=== PATIENT | female | born 1960 | race Caucasian/White ===

== ENCOUNTER 2022-08-07 10:46 | Emergency (ER) | payer OTHER ==
[~2022-08-07] VITALS: Ht 167.6 cm; Wt 69.7 kg
[2022-08-07 11:11] VITALS: BP 155/79
[2022-08-07] MEDS ORDERED: KETOROLAC TROMETH 60MG/2ML VIAL IM ONE (12:30)
== END 2022-08-07 12:51 | disposition home or self-care (01) ==
LOC: ER 10:46
DX: S16.1XXA Strain of muscle, fascia and tendon at neck level, initial encounter (principal); G44.309 Post-traumatic headache, unspecified, not intractable; M50.30 Other cervical disc degeneration, unspecified cervical region; E78.5 Hyperlipidemia, unspecified; I10 Essential (primary) hypertension; F17.210 Nicotine dependence, cigarettes, uncomplicated; W20.8XXA Other cause of strike by thrown, projected or falling object, initial encounter; Y93.89 Activity, other specified; Y92.89 Other specified places as the place of occurrence of the external cause; Y99.8 Other external cause status
CPT/HCPCS: 70450; 72125; 96372; 99285; J1885

== ENCOUNTER 2022-08-26 18:25 | Emergency (ER) | payer OTHER ==
[~2022-08-26] VITALS: Ht 167.6 cm; Wt 70.7 kg
[2022-08-26 18:53] VITALS: BP 149/86
[2022-08-26] MEDS ORDERED: KETOROLAC TROMETH 60MG/2ML VIAL IM ONE (19:15)
[2022-08-26] MEDS ORDERED: ZOFR4T PO (19:15)
[2022-08-26] MEDS ORDERED: HYDR-4902 PO (19:15)
== END 2022-08-26 20:47 | disposition home or self-care (01) ==
LOC: ER 18:27
DX: G44.319 Acute post-traumatic headache, not intractable (principal); E78.5 Hyperlipidemia, unspecified; I10 Essential (primary) hypertension; F17.210 Nicotine dependence, cigarettes, uncomplicated
CPT/HCPCS: 96372; 99283; J1885